=== PATIENT | female | born 1985 | race Caucasian/White ===

== ENCOUNTER 2018-03-29 16:25 | Outpatient (CLI) | payer BC ==
[2015-11-15 19:11] VITALS: BP 121/76
== END 2018-03-29 16:26 ==
LOC: LABRHC 16:25
PROVIDERS: ATTEND Physician Assistant
DX: M54.5 Low back pain (principal); R10.30 Lower abdominal pain, unspecified
CPT/HCPCS: 87086

== ENCOUNTER 2018-11-22 14:45 | Outpatient (CLI) | payer BC ==
[2015-11-15 19:11] VITALS: BP 121/76
== END 2018-11-22 14:46 ==
LOC: LAB 14:45
PROVIDERS: ATTEND Family Medicine
DX: N91.2 Amenorrhea, unspecified (principal)
CPT/HCPCS: 36415; 84702

== ENCOUNTER 2019-01-03 08:23 | Outpatient (CLI) | payer BC ==
[2018-12-25 15:47] VITALS: BP 107/62
== END 2019-01-03 08:25 ==
LOC: LAB 08:23
PROVIDERS: ATTEND Family Medicine
DX: E03.9 Hypothyroidism, unspecified (principal)
CPT/HCPCS: 36415; 84443